=== PATIENT | male | born 1995 | race Caucasian/White ===

== ENCOUNTER 2017-02-22 13:09 | Emergency (ER) | payer MEDICAID ==
[2017-02-22] MEDS ORDERED: Ondansetron 4 MG Tab.DIS PO ONE (14:13)
--- NOTE | 2017-02-22 14:17 | EDM.PDOC ---
ED HPI GENERAL MEDICAL PROBLEM - General Chief Complaint: Abdominal Pain Stated Complaint: RIGHT SIDED ABDOMINAL PAIN Time Seen by Provider: 02/22/17 13:59 Source of Information: Reports: Patient, Old Records, RN Notes Reviewed History Limitations: Reports: No Limitations - History of Present Illness INITIAL COMMENTS - FREE TEXT/NARRATIVE: 21-year-old gentleman presents emergency department day complaint of abdominal pain, he states his had abdominal pain for the last 2 years has waxed and waned over the last 3 week has progressively gotten worse does have nausea with this he does admit that he has bouts of constipation followed by bouts of diarrhea denies any fevers he does take Seroquel however he does not know his primary care provider - Related Data Allergies Allergy/AdvReac Type Severity Reaction Status Date / Time No Known Allergies Allergy Verified 02/22/17 13:35 Home Meds: Home Meds NK [No Known Home Meds] 02/22/17 [History] Past Medical History HEENT History: Reports: Impaired Vision Other Respiratory History: RSV Other Gastrointestinal History: CONSTIPATION Psychiatric History: Reports: ADHD Other Psychiatric History: pedophilia Zoophilia Social & Family History - Tobacco Use Smoking Status *Q: Current Every Day Smoker Years of Tobacco use: 1 Packs/Tins Daily: 0.5 Used Tobacco, but Quit: No Second Hand Smoke Exposure: No - Caffeine Use Caffeine Use: Reports: Coffee, Energy Drinks, Soda, Tea - Recreational Drug Use Recreational Drug Use: Yes Drug Use in Last 12 Months: Yes Recreational Drug Type: Reports: Marijuana/Hashish Recreational Drug Use Frequency: Daily ED ROS GENERAL - Review of Systems Review Of Systems: See Below Constitutional: Reports: No Symptoms HEENT: Reports: No Symptoms Respiratory: Reports: No Symptoms Cardiovascular: Reports: No Symptoms GI/Abdominal: Reports: Abdominal Pain, Constipation, Nausea. Denies: Vomiting : Reports: No Symptoms Musculoskeletal: Reports: No Symptoms Skin: Reports: No Symptoms Neurological: Reports: No Symptoms ED EXAM, GI/ABD - Physical Exam Exam: See Below Text/Narrative:: General: Male, not in any distress, alert and oriented x3 HEENT: head is atraumatic normocephalic, eyes pupils equal round reactive to light, sclera clear no conjunctivitis appreciated. Ears tympanic membranes clear and pacheco landmarks and light reflex are present bilaterally canals are clear. Nose no septal deviation, nares are clear, no blood present. Mouth mucosa is moist and pink no erythema or exudate noted in soft palate, tongue is midline uvula is midline, dentition is intact. Neck: Supple no thyromegaly no tracheal deviation. Nodes: Cervical nodes subclavicular nodes nontender no palpable lymphadenopathy noted. Lungs: clear to auscultation bilaterally with symmetrical respirations, no adventitious noise appreciated. CV: Regular rate and rhythm S1 and S2 appreciated no murmurs rubs or gallops noted. Abdomen: Soft, nontender, no palpable masses or organomegaly appreciated, no distention no guarding bowel sounds are present, . Course - Vital Signs Last Recorded V/S: Last Vital Signs Temp 98.9 F 02/22/17 13:30 Pulse 71 02/22/17 13:30 Resp 15 02/22/17 13:30 BP 114/64 02/22/17 13:30 Pulse Ox 100 02/22/17 13:30 - Orders/Labs/Meds Labs: Laboratory Tests 02/22/17 02/22/17 02/22/17 Range/Units 14:22 14:22 14:22 WBC 7.4 (4.5-11.0) K/uL RBC 4.93 (4.30-5.90) M/uL Hgb 14.6 (12.0-15.0) g/dL Hct 42.8 (40.0-54.0) % MCV 87 (80-98) fL MCH 30 (27-31) pg MCHC 34 (32-36) % Plt Count 227 (150-400) K/uL Neut % (Auto) 50 (36-66) % Lymph % (Auto) 39 (24-44) % [place] % (Auto) 8 H (2-6) % Eos % (Auto) 4 (2-4) % Baso % (Auto) 1 (0-1) % Sodium 139 L (140-148) mmol/L Potassium 3.4 L (3.6-5.2) mmol/L Chloride 103 (100-108) mmol/L Carbon Dioxide 30 (21-32) mmol/L Anion Gap 9.4 (5.0-14.0) mmol/L BUN 13 (7-18) mg/dL Creatinine 1.2 (0.8-1.3) mg/dL Est Cr Clr Drug Dosing 98.19 mL/min Estimated GFR (MDRD) > 60 (>60) Glucose 103 (74-106) mg/dL Lactic Acid 1.0 (0.4-2.0) mmol/L Calcium 9.1 (8.5-10.1) mg/dL Total Bilirubin 0.3 (0.2-1.0) mg/dL AST 25 (15-37) U/L ALT 23 (12-78) U/L Alkaline Phosphatase 58 (46-116) U/L Total Protein 7.4 (6.4-8.2) g/dL Albumin 4.2 (3.4-5.0) g/dL Globulin 3.2 (2.3-3.5) g/dL Albumin/Globulin Ratio 1.3 (1.2-2.2) Lipase 126 (73-393) U/L Urine Color Urine Appearance Urine pH (4.5-8.0) Ur Specific [place] (1.008-1.030) Urine Protein (NEGATIVE) mg/dL Urine Glucose (UA) (NEGATIVE) mg/dL Urine Ketones (NEGATIVE) mg/dL Urine Occult Blood (NEGATIVE) Urine Nitrite (NEGAITVE) Urine Bilirubin (NEGATIVE) Urine Urobilinogen (NORMAL) mg/dL Ur Leukocyte Esterase (NEGATIVE) Urine RBC (0-5) Urine WBC (0-5) Ur Epithelial Cells Amorphous Sediment Urine Bacteria Urine Mucus 02/22/17 Range/Units 14:30 WBC (4.5-11.0) K/uL RBC (4.30-5.90) M/uL Hgb (12.0-15.0) g/dL Hct (40.0-54.0) % MCV (80-98) fL MCH (27-31) pg MCHC (32-36) % Plt Count (150-400) K/uL Neut % (Auto) (36-66) % Lymph % (Auto) (24-44) % [place] % (Auto) (2-6) % Eos % (Auto) (2-4) % Baso % (Auto) (0-1) % Sodium (140-148) mmol/L Potassium (3.6-5.2) mmol/L Chloride (100-108) mmol/L Carbon Dioxide (21-32) mmol/L Anion Gap (5.0-14.0) mmol/L BUN (7-18) mg/dL Creatinine (0.8-1.3) mg/dL Est Cr Clr Drug Dosing mL/min Estimated GFR (MDRD) (>60) Glucose (74-106) mg/dL Lactic Acid (0.4-2.0) mmol/L Calcium (8.5-10.1) mg/dL Total Bilirubin (0.2-1.0) mg/dL AST (15-37) U/L ALT (12-78) U/L Alkaline Phosphatase (46-116) U/L Total Protein (6.4-8.2) g/dL Albumin (3.4-5.0) g/dL Globulin (2.3-3.5) g/dL Albumin/Globulin Ratio (1.2-2.2) Lipase (73-393) U/L Urine Color Yellow Urine Appearance Cloudy Urine pH 8.0 (4.5-8.0) Ur Specific [place] 1.015 (1.008-1.030) Urine Protein Negative (NEGATIVE) mg/dL Urine Glucose (UA) Normal (NEGATIVE) mg/dL Urine Ketones Negative (NEGATIVE) mg/dL Urine Occult Blood Negative (NEGATIVE) Urine Nitrite Negative (NEGAITVE) Urine Bilirubin Negative (NEGATIVE) Urine Urobilinogen Normal (NORMAL) mg/dL Ur Leukocyte Esterase Negative (NEGATIVE) Urine RBC 0-5 (0-5) Urine WBC 0-5 (0-5) Ur Epithelial Cells Few Amorphous Sediment Numerous Urine Bacteria Rare Urine Mucus Few Meds: Medications Discontinued Medications Generic Name Dose Route Start Last Admin Trade Name Freq PRN Reason Stop Dose Admin Ondansetron HCl 4 mg 02/22/17 14:13 02/22/17 14:20 Zofran Odt PO 02/22/17 14:14 4 mg ONETIME ONE Administration Departure - Departure Time of Disposition: 15:19 Disposition: Home, Self-Care 01 Condition: Good Clinical Impression: Abdominal pain Qualifiers: Abdominal location: generalized Qualified Code(s): R10.84 - Generalized abdominal pain - Discharge Information Forms: ED Department Discharge Additional Instructions: Tried the Zofran as needed for nausea and vomiting symptoms, restart the MiraLAX to be used for constipation, try the Anaspaz as needed for generalized abdominal cramping. Please follow-up with your primary care provider in the next 3-5 days for reevaluation - Assessment/Plan Plan: Assessment Acuity = acute Site and laterality = abdominal pain generalized Etiology = unclear etiology Manifestations = constipation and diarrhea Location of injury = Home Lab values = CBC, CMP unremarkable plain film shows no acute process Plan I did review lab work and EKG results with him also discussed the possibility of irritable bowel syndrome recommend he follow-up with his primary care for further evaluation I did write him prescription for Zofran he continues for nausea and vomiting systems as well as Anaspaz that he can use for his abdominal discomfort he does have a prescription of MiraLAX but has not been, recommend follow-up primary care 3-5 days for reevaluation Patient was in agreement with the plan all questions were answered, they were instructed to return to the emergency department or call for worsening symptoms. This note was dictated using [email or web address] voice recognition software please call with any questions.
--- NOTE | 2017-02-22 14:48 | CR ---
Abdomen 1V Flat INDICATION: Generalized pain FINDINGS: Normal bowel gas pattern. No evidence for small bowel obstruction or free air. Scattered s tool and gas within normal caliber colon.
[2017-02-22 15:36] VITALS: BP 111/63
== END 2017-02-22 15:38 | disposition home or self-care (01) ==
LOC: JP.ED 13:09
DX: R10.84 Generalized abdominal pain (principal); F17.210 Nicotine dependence, cigarettes, uncomplicated
CPT/HCPCS: 36415; 74000; 80053; 81001; 83605; 83690; 85025; 99284; A9270

== ENCOUNTER 2017-08-02 00:27 | Emergency (ER) | payer MEDICAID ==
[2017-08-02 00:50] VITALS: BP 129/78
[2017-08-02] MEDS ORDERED: Ketorolac 60 MG/2 ML SDV IM ONE (01:00)
[2017-08-02] MEDS ORDERED: Ondansetron 4 MG Tab.DIS PO ONE (01:01)
--- NOTE | 2017-08-02 01:07 | EDM.PDOC ---
ED HPI GENERAL MEDICAL PROBLEM - General Chief Complaint: Gastrointestinal Problem Stated Complaint: VOMITING Time Seen by Provider: 08/02/17 00:54 Source of Information: Reports: Patient History Limitations: Reports: No Limitations - History of Present Illness Onset: Today Duration: Hour(s): (past 4 to 6 hours) Location: Reports: Generalized Quality: Reports: Ache Severity: Mild Improves with: Reports: None Worsens with: Reports: Eating Associated Symptoms: Reports: Nausea/Vomiting Middle Abdomen Pain Score (Numeric/FACES): 7 - Related Data Allergies Allergy/AdvReac Type Severity Reaction Status Date / Time No Known Allergies Allergy Verified 02/22/17 13:35 Home Meds: Home Meds NK [No Known Home Meds] 02/22/17 [History] Past Medical History HEENT History: Reports: Impaired Vision Other Respiratory History: RSV Other Gastrointestinal History: CONSTIPATION Psychiatric History: Reports: ADHD Other Psychiatric History: pedophilia Zoophilia Social & Family History - Tobacco Use Smoking Status *Q: Current Every Day Smoker Years of Tobacco use: 1 Packs/Tins Daily: 0.5 Used Tobacco, but Quit: No Second Hand Smoke Exposure: No - Caffeine Use Caffeine Use: Reports: Soda - Recreational Drug Use Recreational Drug Use: Yes Drug Use in Last 12 Months: Yes Recreational Drug Type: Reports: Marijuana/Hashish Recreational Drug Use Frequency: Rarely ED ROS GENERAL - Review of Systems Review Of Systems: See Below Constitutional: Reports: Fatigue, Decreased Appetite HEENT: Reports: No Symptoms Respiratory: Reports: No Symptoms Cardiovascular: Reports: No Symptoms Endocrine: Reports: No Symptoms GI/Abdominal: Reports: Diarrhea (watery), Nausea, Vomiting : Reports: No Symptoms Musculoskeletal: Reports: No Symptoms Skin: Reports: No Symptoms Neurological: Reports: No Symptoms Psychiatric: Reports: No Symptoms Hematologic/Lymphatic: Reports: No Symptoms Immunologic: Reports: No Symptoms ED EXAM, GENERAL - Physical Exam Exam: See Below Exam Limited By: No Limitations General Appearance: Alert, WD/WN, No Apparent Distress, Other (pallor) Eye Exam: Bilateral Eye: Normal Inspection Ears: Normal External Exam, Normal Canal, Hearing Grossly Normal, Normal TMs Ear Exam: Bilateral Ear: Auricle Normal, Canal Normal, TM normal Nose: Normal Inspection, Normal Mucosa, No Blood Throat/Mouth: Normal Inspection, Normal Lips, Normal Teeth, Normal Gums, Normal Oropharynx, Normal Voice, No Airway Compromise Head: Atraumatic, Normocephalic Neck: Normal Inspection, Supple, Non-Tender, Full Range of Motion Respiratory/Chest: No Respiratory Distress, Lungs Clear, Normal Breath Sounds, No Accessory Muscle Use, Chest Non-Tender Cardiovascular: Regular Rate, Rhythm, No Murmur GI/Abdominal: Normal Bowel Sounds, Soft, Non-Tender, No Organomegaly, No Distention, No Abnormal Bruit, No Mass (Male) Exam: Deferred Rectal (Males) Exam: Deferred Back Exam: Normal Inspection, Full Range of Motion, NT Extremities: Normal Inspection Neurological: Alert, Oriented, CN II-XII Intact, Normal Cognition, Normal Gait, Normal Reflexes, No Motor/Sensory Deficits Psychiatric: Normal Affect, Normal Mood Skin Exam: Warm, Dry, Intact, Normal Color, No Rash Lymphatic: No Adenopathy Course - Vital Signs Last Recorded V/S: Last Vital Signs Temp 37.3 C 08/02/17 00:40 Pulse 95 08/02/17 00:40 Resp 16 08/02/17 00:40 BP 129/78 08/02/17 00:40 Pulse Ox 99 08/02/17 00:40 - Orders/Labs/Meds Meds: Medications Discontinued Medications Generic Name Dose Route Start Last Admin Trade Name Freq PRN Reason Stop Dose Admin Ketorolac Tromethamine 60 mg 08/02/17 01:00 08/02/17 01:05 Toradol IM 08/02/17 01:01 60 mg ONETIME ONE Administration Ondansetron HCl 4 mg 08/02/17 01:01 08/02/17 01:05 Zofran Odt PO 08/02/17 01:02 4 mg ONETIME ONE Administration - Re-Assessments/Exams Free Text/Narrative Re-Assessment/Exam: 08/02/17 01:04 lab; influenza to rule out infection meds; Zofran 4mg odt for nausea, Toradol 60mg IM for muscle pain/ache will await lab results. 08/02/17 01:24 influenza A and B negative, will discharge to home with work release and phenergan for nausea and vomiting Departure - Departure Time of Disposition: 01:26 Disposition: Home, Self-Care 01 Condition: Good Clinical Impression: Gastroenteritis - Discharge Information Instructions: Viral Gastroenteritis, Adult, [id number], Nausea and Vomiting, Adult, [id number] Referrals: PCP,None [Primary Care Provider] - Forms: ED Department Discharge Care Plan Goals: Nausea and vomiting -influenza A and B negative -clear liquid diet x 12 hours then advance as tolerated -Phenergan 25mg by mouth every 8 hrs as needed for nausea and vomiting -rest -no work for 3 days return to Clinic, Urgent Care or ER if has continued symptoms, develops abdominal pain, fever, chills, rash or not improved. - Problem List & Annotations (1) Gastroenteritis SNOMED Code(s): 60244284 Code(s): K52.9 - NONINFECTIVE GASTROENTERITIS AND COLITIS, UNSPECIFIED Status: Acute Priority: Medium Current Visit: Yes - Problem List Review Problem List Initiated/Reviewed/Updated: Yes - Assessment/Plan Plan: Nausea and vomiting -influenza A and B negative -clear liquid diet x 12 hours then advance as tolerated -Phenergan 25mg by mouth every 8 hrs as needed for nausea and vomiting -rest -no work for 3 days return to Clinic, Urgent Care or ER if has continued symptoms, develops abdominal pain, fever, chills, rash or not improved.
== END 2017-08-02 01:32 | disposition home or self-care (01) ==
LOC: JP.ED 00:27
DX: K52.9 Noninfective gastroenteritis and colitis, unspecified (principal); F17.210 Nicotine dependence, cigarettes, uncomplicated
CPT/HCPCS: 87804; 96372; 99284; A9270; J1885

== ENCOUNTER 2017-08-05 20:56 | Emergency (ER) | payer MEDICAID ==
[2017-08-05 21:23] VITALS: BP 115/74
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
== END 2017-08-05 22:26 | disposition home or self-care (01) ==
LOC: JP.ED 20:56
DX: F41.8 Other specified anxiety disorders (principal); F17.210 Nicotine dependence, cigarettes, uncomplicated
CPT/HCPCS: 87081; 87430; 99285

== ENCOUNTER 2018-01-01 01:15 | Emergency (ER) | payer MEDICAID ==
[2018-01-01] MEDS ORDERED: Acetaminophen 325 MG Tab PO ONE (01:53)
--- NOTE | 2018-01-01 01:53 | EDM.PDOC ---
ED HPI GENERAL MEDICAL PROBLEM - General Chief Complaint: Abdominal Pain Stated Complaint: ABD PAIN Time Seen by Provider: 01/01/18 01:53 Source of Information: Reports: Patient History Limitations: Reports: No Limitations - History of Present Illness INITIAL COMMENTS - FREE TEXT/NARRATIVE: pt developed some gas and discomfort in the abdoman yesterday am, He had 2 loose stools. He has not had any further diarrhea since that time. He did have a cough and wheezing and he was seen at the clinic wed. He has been sweaty and felt warm all day. He has not had further diarrhea. Onset: Other (yesterday. He had a cough earluier in the week. ) Duration: Hour(s): Associated Symptoms: Reports: Cough, Fever/Chills, Loss of Appetite Mid Abdomen Pain Score (Numeric/FACES): 8 - Related Data Allergies Allergy/AdvReac Type Severity Reaction Status Date / Time No Known Allergies Allergy Verified 01/01/18 01:44 Home Meds: Home Meds Albuterol [Ventolin HFA] 1 puff INH Q4HR PRN 01/01/18 [History] predniSONE 20 mg PO DAILY 01/01/18 [History] Past Medical History HEENT History: Reports: Impaired Vision Other Respiratory History: RSV Other Gastrointestinal History: CONSTIPATION Psychiatric History: Reports: ADHD Other Psychiatric History: pedophilia Zoophilia Social & Family History - Caffeine Use Caffeine Use: Reports: Soda - Living Situation & Occupation Living situation: Reports: Single Occupation: Employed (lives 30 mins away from [facility]) ED ROS GENERAL - Review of Systems Review Of Systems: See Below Constitutional: Reports: Fever, Chills HEENT: Reports: No Symptoms Respiratory: Reports: Cough, Sputum Cardiovascular: Reports: No Symptoms Endocrine: Reports: No Symptoms GI/Abdominal: Reports: Other (pain over his bladder area. ) : Reports: No Symptoms Musculoskeletal: Reports: No Symptoms Skin: Reports: No Symptoms ED EXAM, GI/ABD - Physical Exam Exam: See Below Text/Narrative:: pt was chilling and appeared dehydrated. He did have a temp of 103. He has no history of tick bites but he has been in the [place]. Exam Limited By: No Limitations General Appearance: Moderate Distress Ears: Normal TMs Nose: Normal Inspection Throat/Mouth: Normal Inspection Head: Atraumatic Neck: Normal Inspection Respiratory/Chest: No Respiratory Distress, Other (pt has no wheezinf or resp distress. ) Cardiovascular: Regular Rate, Rhythm, Tachycardia GI/Abdominal Exam: Soft, Tender, Other (He has mild suprapupic tenderness. ) (Male) Exam: Deferred Rectal (Males) Exam: Deferred Back Exam: Normal Inspection Extremities: Normal Inspection Neurological: Alert, Oriented, Normal Cognition Psychiatric: Anxious Course - Vital Signs Last Recorded V/S: Last Vital Signs Temp 37.6 C 01/01/18 03:30 Pulse 88 01/01/18 03:30 Resp 14 01/01/18 03:30 BP 110/85 01/01/18 03:30 Pulse Ox 97 01/01/18 03:30 - Orders/Labs/Meds Labs: Laboratory Tests 01/01/18 01/01/18 01/01/18 Range/Units 02:04 02:04 02:04 WBC 7.8 (4.5-11.0) K/uL RBC 5.01 (4.30-5.90) M/uL Hgb 14.9 (12.0-15.0) g/dL Hct 42.9 (40.0-54.0) % MCV 86 (80-98) fL MCH 30 (27-31) pg MCHC 35 (32-36) % Plt Count 227 (150-400) K/uL Neut % (Auto) 84 H (36-66) % Lymph % (Auto) 12 L (24-44) % [place] % (Auto) 3 (2-6) % Eos % (Auto) 0 L (2-4) % Baso % (Auto) 0 (0-1) % Sodium 139 L (140-148) mmol/L Potassium 3.2 L (3.6-5.2) mmol/L Chloride 102 (100-108) mmol/L Carbon Dioxide 25 (21-32) mmol/L Anion Gap 15.2 H (5.0-14.0) mmol/L BUN 14 (7-18) mg/dL Creatinine 1.3 (0.8-1.3) mg/dL Est Cr Clr Drug Dosing 95.01 mL/min Estimated GFR (MDRD) > 60 (>60) Glucose 90 (74-106) mg/dL Lactic Acid 1.3 (0.4-2.0) mmol/L Calcium 8.3 L (8.5-10.1) mg/dL Total Bilirubin 0.4 (0.2-1.0) mg/dL AST 25 (15-37) U/L ALT 30 (12-78) U/L Alkaline Phosphatase 42 L (46-116) U/L C-Reactive Protein (0.0-0.3) mg/dL Total Protein 7.0 (6.4-8.2) g/dL Albumin 3.8 (3.4-5.0) g/dL Globulin 3.2 (2.3-3.5) g/dL Albumin/Globulin Ratio 1.2 (1.2-2.2) Urine Color Urine Appearance Urine pH (4.5-8.0) Ur Specific [place] (1.008-1.030) Urine Protein (NEGATIVE) mg/dL Urine Glucose (UA) (NEGATIVE) mg/dL Urine Ketones (NEGATIVE) mg/dL Urine Occult Blood (NEGATIVE) Urine Nitrite (NEGAITVE) Urine Bilirubin (NEGATIVE) Urine Urobilinogen (NORMAL) mg/dL Ur Leukocyte Esterase (NEGATIVE) Urine RBC (0-5) Urine WBC (0-5) Ur Epithelial Cells Amorphous Sediment Urine Bacteria Urine Mucus Babesia microti IgG Ab (Neg:<1:10) Babesia microti IgM Ab (Neg:<1:10) E. chaffeensis IgG Ab (Neg:<1:64) E. chaffeensis IgM Ab (Neg:<1:20) 01/01/18 01/01/18 01/01/18 Range/Units 02:05 02:30 02:30 WBC (4.5-11.0) K/uL RBC (4.30-5.90) M/uL Hgb (12.0-15.0) g/dL Hct (40.0-54.0) % MCV (80-98) fL MCH (27-31) pg MCHC (32-36) % Plt Count (150-400) K/uL Neut % (Auto) (36-66) % Lymph % (Auto) (24-44) % [place] % (Auto) (2-6) % Eos % (Auto) (2-4) % Baso % (Auto) (0-1) % Sodium (140-148) mmol/L Potassium (3.6-5.2) mmol/L Chloride (100-108) mmol/L Carbon Dioxide (21-32) mmol/L Anion Gap (5.0-14.0) mmol/L BUN (7-18) mg/dL Creatinine (0.8-1.3) mg/dL Est Cr Clr Drug Dosing mL/min Estimated GFR (MDRD) (>60) Glucose (74-106) mg/dL Lactic Acid (0.4-2.0) mmol/L Calcium (8.5-10.1) mg/dL Total Bilirubin (0.2-1.0) mg/dL AST (15-37) U/L ALT (12-78) U/L Alkaline Phosphatase (46-116) U/L C-Reactive Protein 1.68 H (0.0-0.3) mg/dL Total Protein (6.4-8.2) g/dL Albumin (3.4-5.0) g/dL Globulin (2.3-3.5) g/dL Albumin/Globulin Ratio (1.2-2.2) Urine Color Urine Appearance Urine pH (4.5-8.0) Ur Specific [place] (1.008-1.030) Urine Protein (NEGATIVE) mg/dL Urine Glucose (UA) (NEGATIVE) mg/dL Urine Ketones (NEGATIVE) mg/dL Urine Occult Blood (NEGATIVE) Urine Nitrite (NEGAITVE) Urine Bilirubin (NEGATIVE) Urine Urobilinogen (NORMAL) mg/dL Ur Leukocyte Esterase (NEGATIVE) Urine RBC (0-5) Urine WBC (0-5) Ur Epithelial Cells Amorphous Sediment Urine Bacteria Urine Mucus Babesia microti IgG Ab <1:10 (Neg:<1:10) Babesia microti IgM Ab <1:10 (Neg:<1:10) E. chaffeensis IgG Ab Negative (Neg:<1:64) E. chaffeensis IgM Ab Negative (Neg:<1:20) 01/01/18 Range/Units 06:47 WBC (4.5-11.0) K/uL RBC (4.30-5.90) M/uL Hgb (12.0-15.0) g/dL Hct (40.0-54.0) % MCV (80-98) fL MCH (27-31) pg MCHC (32-36) % Plt Count (150-400) K/uL Neut % (Auto) (36-66) % Lymph % (Auto) (24-44) % [place] % (Auto) (2-6) % Eos % (Auto) (2-4) % Baso % (Auto) (0-1) % Sodium (140-148) mmol/L Potassium (3.6-5.2) mmol/L Chloride (100-108) mmol/L Carbon Dioxide (21-32) mmol/L Anion Gap (5.0-14.0) mmol/L BUN (7-18) mg/dL Creatinine (0.8-1.3) mg/dL Est Cr Clr Drug Dosing mL/min Estimated GFR (MDRD) (>60) Glucose (74-106) mg/dL Lactic Acid (0.4-2.0) mmol/L Calcium (8.5-10.1) mg/dL Total Bilirubin (0.2-1.0) mg/dL AST (15-37) U/L ALT (12-78) U/L Alkaline Phosphatase (46-116) U/L C-Reactive Protein (0.0-0.3) mg/dL Total Protein (6.4-8.2) g/dL Albumin (3.4-5.0) g/dL Globulin (2.3-3.5) g/dL Albumin/Globulin Ratio (1.2-2.2) Urine Color Yellow Urine Appearance Clear Urine pH 5.0 (4.5-8.0) Ur Specific [place] 1.010 (1.008-1.030) Urine Protein Negative (NEGATIVE) mg/dL Urine Glucose (UA) Normal (NEGATIVE) mg/dL Urine Ketones 15 H (NEGATIVE) mg/dL Urine Occult Blood Negative (NEGATIVE) Urine Nitrite Negative (NEGAITVE) Urine Bilirubin Negative (NEGATIVE) Urine Urobilinogen Normal (NORMAL) mg/dL Ur Leukocyte Esterase Negative (NEGATIVE) Urine RBC Not seen (0-5) Urine WBC 0-5 (0-5) Ur Epithelial Cells Not seen Amorphous Sediment Not seen Urine Bacteria Not seen Urine Mucus Few Babesia microti IgG Ab (Neg:<1:10) Babesia microti IgM Ab (Neg:<1:10) E. chaffeensis IgG Ab (Neg:<1:64) E. chaffeensis IgM Ab (Neg:<1:20) Meds: Medications Discontinued Medications Generic Name Dose Route Start Last Admin Trade Name Jemal PRN Reason Stop Dose Admin Acetaminophen 650 mg 01/01/18 01:53 01/01/18 02:09 Tylenol PO 01/01/18 01:54 650 mg NOW ONE Administration Sodium Chloride 1,000 mls @ 999 mls/hr 01/01/18 02:00 01/01/18 02:10 Normal Saline IV 999 mls/hr ASDIRECTED KAUSHIK Administration Sodium Chloride 1,000 mls @ 999 mls/hr 01/01/18 02:45 01/01/18 03:12 Normal Saline IV 999 mls/hr ASDIRECTED KAUSHIK Administration Doxycycline Hyclate 100 mg/ 100 mls @ 100 mls/hr 01/01/18 03:05 01/01/18 03: 18 Sodium Chloride IV 01/01/18 04:04 100 mls/hr ONETIME ONE Administration Sodium Chloride 1,000 mls @ 999 mls/hr 01/01/18 03:45 01/01/18 04:13 Normal Saline IV 999 mls/hr ASDIRECTED KAUSHIK Administration Ibuprofen 600 mg 01/01/18 03:26 01/01/18 04:12 Motrin PO 01/01/18 03:27 600 mg ONETIME ONE Administration - Re-Assessments/Exams Free Text/Narrative Re-Assessment/Exam: 01/04/18 07:26 pt waS HYDRATED WITH 2 LITERS OF FLUID. hIS ABDOMANAL PAIN WAS GONE. hE HAD A NEG INFLU AND A CLEAR CHEST XRAY. hE DID FEEL BETTTER. hIS TICK STUDIES ARE PENDING. Departure - Departure Time of Disposition: 07:20 Disposition: Home, Self-Care 01 Condition: Fair Clinical Impression: At high risk for tick borne illness, Dehydration - Discharge Information Instructions: Tick Bite Information, Adult, [id number], Dehydration, Adult, [id number] Referrals: PCP,None [Primary Care Provider] - Forms: ED Department Discharge Care Plan Goals: push fluids, doxycyline 100mg bid, rtc if not improving, will get back to pt regarding tick born illness studies
[2018-01-01] MEDS ORDERED: Sodium Chloride 0.9% 1,000 ML IV SCH ×3 (02:00→03:45)
[2018-01-01] MEDS ORDERED: Doxycycline 100 MG in Sodium Chloride 0.9% 100 ML IV ONE (03:05)
[2018-01-01] MEDS ORDERED: Ibuprofen 600 MG Tab PO ONE (03:26)
[2018-01-01 04:08] VITALS: BP 110/85
--- NOTE | 2018-01-01 11:18 | CR ---
Chest 2V INDICATION: fever FINDINGS: Negative chest.
[2018-01-03 14:13] LABS: E. CHAFFEENSIS (HME) IGG TITER Negative (Neg:<1:64); E. CHAFFEENSIS (HME) IGM TITER Negative (Neg:<1:20)
[2018-01-03 17:10] LABS: BABESIA MICROTI IGG <1:10 (Neg:<1:10); BABESIA MICROTI IGM <1:10 (Neg:<1:10)
== END 2018-01-01 07:43 | disposition home or self-care (01) ==
LOC: JP.ED 01:15
DX: E86.0 Dehydration (principal); Z79.899 Other long term (current) drug therapy; F95.9 Tic disorder, unspecified
CPT/HCPCS: 36415; 71046; 80053; 81001; 83605; 85025; 86140; 86666; 86753; 87040; 87493; 87804; 96361; 96365; 99284; A9270; J7030; J7040

== ENCOUNTER 2018-03-04 07:51 | Emergency (ER) | payer MEDICAID ==
[2018-03-04 08:06] VITALS: BP 110/61
--- NOTE | 2018-03-04 08:28 | EDM.PDOC ---
ED HPI GENERAL MEDICAL PROBLEM - General Chief Complaint: General Stated Complaint: TOP LIP SWOLLEN Time Seen by Provider: 03/04/18 08:17 Source of Information: Reports: Patient, RN Notes Reviewed History Limitations: Reports: No Limitations - History of Present Illness INITIAL COMMENTS - FREE TEXT/NARRATIVE: 22-year-old gentleman presents to the emergency department today with complaint of facial swelling, he admits to having a pimple on his upper lip he did pick at this now awoke this morning with swelling in the upper lip mild tenderness no fevers no redness no warmth - Related Data Allergies Allergy/AdvReac Type Severity Reaction Status Date / Time No Known Allergies Allergy Verified 03/04/18 08:10 Home Meds: Home Meds Albuterol [Ventolin HFA] 1 puff INH Q4HR PRN 01/01/18 [History] Past Medical History HEENT History: Reports: Impaired Vision Respiratory History: Reports: Bronchitis, Recurrent Other Respiratory History: RSV Other Gastrointestinal History: CONSTIPATION Psychiatric History: Reports: ADHD Other Psychiatric History: pedophilia Zoophilia - Infectious Disease History Infectious Disease History: Reports: RSV Social & Family History - Tobacco Use Smoking Status *Q: Current Every Day Smoker Years of Tobacco use: 3 Packs/Tins Daily: 0.5 - Caffeine Use Caffeine Use: Reports: Coffee, Soda - Alcohol Use Days Per Week of Alcohol Use: 2 Number of Drinks Per Day: 2 Total Drinks Per Week: 4 - Recreational Drug Use Recreational Drug Use: Yes Recreational Drug Type: Reports: Marijuana/Hashish Recreational Drug Use Frequency: Socially - Living Situation & Occupation Living situation: Reports: Single Occupation: Employed (lives 30 [place] away from [facility]) ED ROS GENERAL - Review of Systems Review Of Systems: See Below Constitutional: Reports: No Symptoms Respiratory: Reports: No Symptoms Cardiovascular: Reports: No Symptoms GI/Abdominal: Reports: Nausea Skin: Reports: Rash, Lesions. Denies: Pallor ED EXAM, GENERAL - Physical Exam Exam: See Below Free Text/Narrative:: Mouth mucosa is moist and pink no erythema or exudate noted in soft palate tongue is midline uvula is midline and do appreciate some edema on the upper lip I can't detect any specific break in the skin there is mild erythema appreciated over the upper lip as well there is no lesion noted on the anterior aspect of the mucosal Exam Limited By: No Limitations General Appearance: Alert, WD/WN, No Apparent Distress Nose: Normal Inspection, Normal Mucosa, No Blood Head: Atraumatic, Normocephalic Neck: Normal Inspection, Supple, Non-Tender, Full Range of Motion Respiratory/Chest: No Respiratory Distress Course - Vital Signs Last Recorded V/S: Last Vital Signs Temp 96.1 F 03/04/18 08:09 Pulse 62 03/04/18 08:09 Resp 16 03/04/18 08:09 BP 110/61 03/04/18 08:09 Pulse Ox 100 03/04/18 08:09 Departure - Departure Time of Disposition: 08:29 Disposition: Home, Self-Care 01 Condition: Good Clinical Impression: Cellulitis and abscess of face - Discharge Information Referrals: PCP,None [Primary Care Provider] - Additional Instructions: Take full course of antibiotics, Please followup with your primary care provider in 3-5 days if not better, please call return to the emergency department with worsening of symptoms. - Assessment/Plan Plan: Assessment Acuity = acute Site and laterality = local cellulitis Etiology = probable bacterial cause Manifestations = local edema Location of injury = Home Lab values = none Plan Empirically try ice compress, Keflex 500 mg by mouth twice a day 7 days follow- up primary care 3-5 days if no improvement This note was dictated using [employer] voice recognition software please call with any questions on syntax or grammar.
== END 2018-03-04 08:36 | disposition home or self-care (01) ==
LOC: JP.ED 07:51
DX: K13.0 Diseases of lips (principal); F17.210 Nicotine dependence, cigarettes, uncomplicated
CPT/HCPCS: 99283

== ENCOUNTER 2020-05-06 12:35 | Day surgery (SDC) | payer MEDICARE, MEDICAID ==
[2020-05-06] MEDS: Sodium Chloride 0.9% 10 ML Syringe FLUSH PRN ×2 (13:03→13:40)
[2020-05-06] MEDS ORDERED: HYDROmorphone 0.5 MG/0.5 ML Syringe IVPUSH ONE ×2 (13:06→14:21)
[2020-05-06] MEDS ORDERED: Lactated Ringers 1,000 ML IV ONE (13:06)
[2020-05-06] MEDS ORDERED: Ondansetron 4 MG/2 ML SDV IVPUSH ONE (13:07)
--- NOTE | 2020-05-06 13:16 | EDM.PDOC ---
ED HPI GENERAL MEDICAL PROBLEM - General Chief Complaint: Abdominal Pain Stated Complaint: RT LOWER ABDOMINAL PAIN Time Seen by Provider: 05/06/20 13:00 Source of Information: Reports: Patient, RN History Limitations: Reports: No Limitations - History of Present Illness INITIAL COMMENTS - FREE TEXT/NARRATIVE: 24 yo male presents with RLQ pain that began yesterday as periumbilical pain. Has some nausea. Bowels not working last couple of days. Has mild urethral burning with urination. No fever. No past surgeries. Appetite is gone. Onset: Gradual Onset Date: 05/05/20 Duration: Day(s): (1), Getting Worse Location: Reports: Abdomen Quality: Reports: Ache Severity: Moderate Improves with: Reports: Rest Worsens with: Reports: Movement Context: Reports: Other (See HPI) Associated Symptoms: Reports: Loss of Appetite, Nausea/Vomiting (no vomiting). Denies: Fever/Chills Treatments BROADCAST METEOROLOGIST: Reports: Other (see below) (none) Right Lower Abdomen Pain Score (Numeric/FACES): 8 - Related Data Allergies Allergy/AdvReac Type Severity Reaction Status Date / Time No Known Allergies Allergy Verified 05/06/20 12:50 Home Meds: Home Meds Albuterol [Ventolin HFA] 1 puff INH Q4HR PRN 01/01/18 [History] Past Medical History HEENT History: Reports: Impaired Vision Other Cardiovascular History: ? murmur Respiratory History: Reports: Bronchitis, Recurrent Other Respiratory History: RSV Gastrointestinal History: Reports: Irritable Bowel Syndrome Other Gastrointestinal History: CONSTIPATION Genitourinary History: Reports: None Musculoskeletal History: Reports: None Neurological History: Reports: None Psychiatric History: Reports: ADHD, Suicidal Ideation Other Psychiatric History: pedophilia Zoophilia Endocrine/Metabolic History: Reports: None Hematologic History: Reports: None Immunologic History: Reports: None Oncologic (Cancer) History: Reports: None Dermatologic History: Reports: None - Infectious Disease History Infectious Disease History: Reports: None Social & Family History - Tobacco Use Smoking Status *Q: Current Every Day Smoker Years of Tobacco use: 2 Packs/Tins Daily: 1 - Caffeine Use Caffeine Use: Reports: Coffee, Energy Drinks, Soda, Tea - Recreational Drug Use Recreational Drug Use: No - Living Situation & Occupation Living situation: Reports: Single Occupation: Employed (lives [place] away from [facility]) ED ROS GENERAL - Review of Systems Review Of Systems: See Below Constitutional: Reports: No Symptoms HEENT: Reports: No Symptoms Respiratory: Reports: No Symptoms Cardiovascular: Reports: No Symptoms GI/Abdominal: Reports: Abdominal Pain, Constipation, Flatus, Nausea. Denies: Black Stool, Bloody Stool, Diarrhea, Distension, Hematemesis, Hematochezia, Melena, Vomiting : Reports: Dysuria (mild) Musculoskeletal: Reports: No Symptoms Skin: Reports: No Symptoms Neurological: Reports: No Symptoms ED EXAM, GI/ABD - Physical Exam Exam: See Below Exam Limited By: No Limitations General Appearance: Alert, WD/WN, No Apparent Distress Eyes: Bilateral: Normal Appearance Ears: Normal External Exam, Normal Canal, Hearing Grossly Normal Nose: Normal Inspection, No Blood Throat/Mouth: Normal Inspection, Normal Lips, Normal Oropharynx, Normal Voice, No Airway Compromise Head: Atraumatic, Normocephalic Neck: Normal Inspection Respiratory/Chest: No Respiratory Distress, Lungs Clear, Normal Breath Sounds, No Accessory Muscle Use Cardiovascular: Regular Rate, Rhythm, No Edema GI/Abdominal Exam: Normal Bowel Sounds, Soft, No Distention, Guarding (mild), Rebound (mild), Tender (RLQ). No: Non-Tender, Distended, Rigid (Male) Exam: No Hernia Back Exam: Normal Inspection. No: CVA Tenderness (R), CVA Tenderness (L) Extremities: Normal Inspection, Normal Range of Motion, Non-Tender, No Pedal Edema Neurological: Alert, Oriented, CN II-XII Intact, Normal Cognition, No Motor/Sensory Deficits Psychiatric: Normal Affect, Normal Mood Skin Exam: Warm, Dry, Intact, Normal Color, No Rash Course - Vital Signs Text/Narrative:: Dr. Odell called @ 1347h Last Recorded V/S: Last Vital Signs Temp 36.5 C 05/06/20 17:45 Pulse 77 05/06/20 17:00 Resp 16 05/06/20 17:45 BP 111/63 05/06/20 17:45 Pulse Ox 98 05/06/20 17:45 - Orders/Labs/Meds Orders: Active Orders 24 hr Category Date Time Status Lactated Ringers [Ringers, Lactated] 1,000 ml Med 05/06/20 15:00 Active IV ASDIRECTED Piperacillin/Tazobactam/Dext [Zosyn in Dextrose Iso- Med 05/06/20 22:00 Active Osmotic] 4.5 gm Premix Bag 1 bag IV Q8HR Ropivacaine [Naropin 0.5%] 38 ml Med 05/06/20 15:00 Active dexAMETHasone [Dexamethasone] 8 mg EPINEPHrine [Adrenalin] 0.4 mg Sodium Chloride 0.9% [Normal Saline] 39.6 ml NERVRT ASDIRECTED Sodium Chloride 0.9% [Saline Flush] Med 05/06/20 12:56 Active 10 ml FLUSH ASDIRECTED PRN Saline Lock Insert [OM.PC] Routine Oth 05/06/20 12:56 Ordered Medication Orders Hydrocodone Bitart/Acetaminophen (Alta 325-5 Mg) 1 - 2 tab PO Q4H PRN PRN Reason: Pain (moderate 4-6) Last Admin: 05/06/20 18:22 Dose: 1 tab Documented by: NICOL Benzocaine/Menthol (Cepacol Sore Throat) 1 lozenge MUCMEM Q4H PRN PRN Reason: Sore Throat Ropivacaine 38 ml/Dexamethasone 8 mg/Epinephrine HCl 0.4 mg/ Sodium Chloride 39.6 ml 0 ml NERVRT ASDIRECTED [facility] Last Admin: 05/06/20 15:38 Dose: 80 syringe Documented by: BALDEMAR Docusate Sodium (Colace) 100 mg PO BID PRN PRN Reason: Constipation Last Admin: 05/06/20 18:22 Dose: 100 mg Documented by: NICOL Fentanyl (Sublimaze) 10 - 30 mcg IVPUSH Q1H PRN PRN Reason: Pain (severe 7-10) Hydroxyzine HCl (Vistaril) 100 mg IM Q4H PRN PRN Reason: Breakthrough Pain Last Admin: 05/06/20 15:51 Dose: 100 mg Documented by: BALDEMAR Lactated Ringer's (Ringers, Lactated) 1,000 mls @ 150 mls/hr IV ASDIRECTED [facility] Last Admin: 05/06/20 15:02 Dose: 150 mls/hr Documented by: PREILOR Piperacillin/Tazobactam/ (Dextrose 4.5 gm/ Premix) 100 mls @ 200 mls/hr IV Q8HR [facility] Nicotine (Habitrol) 21 mg TRDERM DAILY [facility] Last Admin: 05/06/20 18:22 Dose: 21 mg Documented by: NICOL Promethazine HCl (Phenergan) 25 mg IM Q6H PRN PRN Reason: Nausea Sodium Chloride (Saline Flush) 10 ml FLUSH ASDIRECTED PRN PRN Reason: Keep Vein Open Last Admin: 05/06/20 13:40 Dose: 10 ml Documented by: Admin: 05/06/20 13:03 Dose: 10 ml Documented by: NAVEEN Zolpidem Tartrate (Ambien) 5 mg PO BEDTIME PRN PRN Reason: Sleep Labs: Laboratory Tests 05/06/20 05/06/20 05/06/20 Range/Units 13:06 13:06 14:00 WBC 15.4 H (4.5-11.0) K/uL RBC 5.88 (4.30-5.90) M/uL Hgb 17.1 H D (12.0-15.0) g/dL Hct 50.7 (40.0-54.0) % MCV 86 (80-98) fL MCH 29 (27-31) pg MCHC 34 (32-36) % Plt Count 265 (150-400) K/uL Sodium 139 L (140-148) mmol/L Potassium 3.8 (3.6-5.2) mmol/L Chloride 103 (100-108) mmol/L Carbon Dioxide 23 (21-32) mmol/L Anion Gap 16.8 H (5.0-14.0) mmol/L BUN 13 (7-18) mg/dL Creatinine 1.2 (0.8-1.3) mg/dL Est Cr Clr Drug Dosing 95.74 mL/min Estimated GFR (MDRD) > 60 (>60) Glucose 107 H (74-106) mg/dL Calcium 9.4 (8.5-10.1) mg/dL SARS-CoV-2 RNA (LEANDRA) Negative (NEGATIVE) Meds: Medications Generic Name Dose Route Start Last Admin Trade Name Freq PRN Reason Stop Dose Admin Hydrocodone Bitart/Acetaminophen 1 - 2 tab 05/06/20 15:12 05/06/20 18:22 Alta 325-5 Mg PO 1 tab Q4H PRN Administration Pain (moderate 4-6) Benzocaine/Menthol 1 lozenge 05/06/20 15:12 Cepacol Sore Throat MUCMEM Q4H PRN Sore Throat Ropivacaine 38 ml/ 0 ml 05/06/20 15:00 05/06/20 15:38 Dexamethasone 8 mg/ NERVRT 80 syringe Epinephrine HCl 0.4 mg/ Sodium ASDIRECTED KAUSHIK Administration Chloride 39.6 ml Docusate Sodium 100 mg 05/06/20 15:12 05/06/20 18:22 Colace PO 100 mg BID PRN Administration Constipation Fentanyl 10 - 30 mcg 05/06/20 15:14 Sublimaze IVPUSH Q1H PRN Pain (severe 7-10) Hydroxyzine HCl 100 mg 05/06/20 15:12 05/06/20 15:51 Vistaril IM 100 mg Q4H PRN Administration Breakthrough Pain Lactated Ringer's 1,000 mls @ 150 mls/hr 05/06/20 15:00 05/06/20 15:02 Ringers, Lactated IV 150 mls/hr ASDIRECTED KAUSHIK Administration Piperacillin/Tazobactam/ 100 mls @ 200 mls/hr 05/06/20 22:00 Dextrose 4.5 gm/ Premix IV Q8HR KAUSHIK Nicotine 21 mg 05/06/20 17:45 05/06/20 18:22 Habitrol TRDERM 21 mg DAILY KAUSHIK Administration Promethazine HCl 25 mg 05/06/20 15:14 Phenergan IM Q6H PRN Nausea Sodium Chloride 10 ml 05/06/20 12:56 05/06/20 13:40 Saline Flush FLUSH 10 ml ASDIRECTED PRN Administration Keep Vein Open Zolpidem Tartrate 5 mg 05/06/20 15:12 Ambien PO BEDTIME PRN Sleep Discontinued Medications Generic Name Dose Route Start Last Admin Trade Name Mikhailq PRN Reason Stop Dose Admin Bupivacaine HCl Confirm 05/06/20 14:14 Marcaine 0.5% Administered 05/06/20 14:15 Dose 50 ml .ROUTE .STK-MED ONE Bupivacaine HCl/Epinephrine Bitart Confirm 05/06/20 14:17 05/06/20 15:36 Marcaine 0.5%/Epinephrine 1:200,000 Administered 05/06/20 14:18 20 ml Dose Administration 50 ml .ROUTE .STK-MED ONE Dexamethasone Confirm 05/06/20 14:13 Dexamethasone Administered 05/06/20 14:14 Dose 4 mg .ROUTE .STK-MED ONE Fentanyl Confirm 05/06/20 14:13 Sublimaze Administered 05/06/20 14:14 Dose 250 mcg .ROUTE .STK-MED ONE Glycopyrrolate Confirm 05/06/20 14:13 Robinul Administered 05/06/20 14:14 Dose 1 mg .ROUTE .STK-MED ONE Hydromorphone HCl 0.5 mg 05/06/20 13:06 05/06/20 13:19 Dilaudid IVPUSH 05/06/20 13:07 0.5 mg ONETIME ONE Administration Hydromorphone HCl 0.5 mg 05/06/20 14:21 05/06/20 14:35 Dilaudid IVPUSH 05/06/20 14:22 0.5 mg ONETIME ONE Administration Hydroxyzine HCl 50 mg 05/06/20 15:42 05/06/20 17:29 Vistaril IM 05/06/20 15:43 Not Given ONETIME ONE Lactated Ringer's 1,000 mls @ 1,000 mls/hr 05/06/20 13:06 05/06/20 13:16 Ringers, Lactated IV 05/06/20 14:05 1,000 mls/hr BOLUS ONE Administration Sodium Chloride 75 mls @ 3 mls/sec 05/06/20 13:29 05/06/20 13:44 Normal Saline IV 05/06/20 13:30 3 mls/sec ONETIME ONE Administration Piperacillin Sod/Tazobactam 100 mls @ 100 mls/hr 05/06/20 14:45 05/06/20 15:02 Sod 4.5 gm/ Sodium Chloride IV 05/06/20 15:30 100 mls/hr Q8H KAUSHIK Administration Iopamidol 114 ml 05/06/20 13:30 05/06/20 13:44 Isovue-300 (61%) IV 114 ml . DIRECTED KAUSHIK Administration Ketorolac Tromethamine Confirm 05/06/20 15:41 Toradol Administered 05/06/20 15:42 Dose 60 mg .ROUTE .STK-MED ONE Lidocaine/Epinephrine Confirm 05/06/20 14:14 Xylocaine 1% With Epinephrine 1:100,000 Administered 05/06/20 14:15 Dose 50 ml .ROUTE .STK-MED ONE Midazolam HCl Confirm 05/06/20 14:13 Versed 1 Mg/Ml Administered 05/06/20 14:14 Dose 2 mg .ROUTE .STK-MED ONE Neostigmine Methylsulfate Confirm 05/06/20 14:13 Neostigmine Administered 05/06/20 14:14 Dose 5 mg .ROUTE .STK-MED ONE Ondansetron HCl 4 mg 05/06/20 13:07 05/06/20 13:18 Zofran IVPUSH 05/06/20 13:08 4 mg ONETIME ONE Administration Ondansetron HCl Confirm 05/06/20 14:13 Zofran Administered 05/06/20 14:14 Dose 4 mg .ROUTE .STK-MED ONE Propofol Confirm 05/06/20 14:13 Diprivan 20 Ml Administered 05/06/20 14:14 Dose 200 mg .ROUTE .STK-MED ONE Rocuronium [place] Confirm 05/06/20 14:13 Zemuron Administered 05/06/20 14:14 Dose 50 mg .ROUTE .STK-MED ONE Sodium Chloride 10 ml 05/06/20 13:29 Saline Flush FLUSH ONETIME PRN PER RADIOLOGY PROTOCOL Succinylcholine Chloride Confirm 05/06/20 14:13 Quelicin Administered 05/06/20 14:14 Dose 200 mg .ROUTE .STK-MED ONE - Radiology Interpretation Free Text/Narrative:: CT abd/pelvis with IV contrast- CT Results Date: 05/06/20 Departure - Departure Time of Disposition: 17:45 Disposition: Admitted As Inpatient 67 Condition: Fair Clinical Impression: Acute appendicitis Qualifiers: Acute appendicitis type: with localized peritonitis Appendicitis gangrene presence: without gangrene Appendicitis perforation presence: without perforation Appendicitis abscess presence: without abscess Qualified Code(s): K35.30 - Acute appendicitis with localized peritonitis, without perforation or gangrene - Discharge Information *PRESCRIPTION DRUG MONITORING PROGRAM REVIEWED*: Not Applicable *COPY OF PRESCRIPTION DRUG MONITORING REPORT IN PATIENT SADIE: Not Applicable Sepsis Event Note (ED) - Evaluation Sepsis Screening Result: No Definite Risk - Focused Exam Vital Signs: Vital Signs Temp Pulse Resp BP Pulse Ox 05/06/20 15:06 82 16 116/69 99 05/06/20 14:30 97 15 124/67 97 05/06/20 12:51 37.3 C 112 H 16 112/77 97 - My Orders Last 24 Hours: My Active Orders 05/06/20 12:56 Sodium Chloride 0.9% [Saline Flush] 10 ml FLUSH ASDIRECTED PRN Saline Lock Insert [OM.PC] Routine 05/06/20 15:00 Lactated Ringers [Ringers, Lactated] 1,000 ml IV ASDIRECTED 05/06/20 22:00 Piperacillin/Tazobactam/Dext [Zosyn in Dextrose Iso-Osmotic] 4.5 gm Premix Bag 1 bag IV Q8HR - Assessment/Plan Last 24 Hours: My Active Orders 05/06/20 12:56 Sodium Chloride 0.9% [Saline Flush] 10 ml FLUSH ASDIRECTED PRN Saline Lock Insert [OM.PC] Routine 05/06/20 15:00 Lactated Ringers [Ringers, Lactated] 1,000 ml IV ASDIRECTED 05/06/20 22:00 Piperacillin/Tazobactam/Dext [Zosyn in Dextrose Iso-Osmotic] 4.5 gm Premix Bag 1 bag IV Q8HR
[2020-05-06] MEDS ORDERED: Sodium Chloride 0.9% 10 ML Syringe FLUSH PRN (13:29)
[2020-05-06] MEDS ORDERED: Sodium Chloride 0.9% 75 ML IV ONE (13:29)
[2020-05-06] MEDS ORDERED: Iopamidol 612 MG/ML 150 ML Bottle IV SCH (13:30)
--- NOTE | 2020-05-06 14:12 | CT ---
Abdomen Pelvis w Cont CLINICAL HISTORY: Right lower quadrant pain COMPARISON: None. TECHNIQUE: Axial tomographic images are obtained from the dome of the diaphragm to the pubic symphysis with IV contrast enhancement. No oral contrast was used. Auto dosage reduction and iterative reconstruction techniques employed. FINDINGS: There is a fluid-filled tubular structure off the tip of the cecum which is 1 cm in diameter. There is some wall enhancement. There is some inflammatory change in the surrounding fat. There are small calcifications near its junction with the cecum consistent with the appendicitis. The lung bases are clear. The liver shows no mass or biliary dilatation. The gallbladder has a normal appearance. The spleen has a normal size and shape. The pancreas shows no mass or inflammatory change. The adrenal glands appear normal bilaterally. The kidneys show no mass, stones or hydronephrosis. The aorta has a normal contour. There is no suspicious retroperitoneal adenopathy. Ureters have a normal course and caliber. The bladder has a normal contour. There is a small amount of free fluid in the pelvis. There is a cylindrical fluid density focus just anterior to the left lobe of the liver measuring 1 x 2 x 8 cm. There is no enhancement or wall. There is a small tubular connection to the falciform ligament. This may represent some anatomic variant or remanent. This is not felt to be related to the free peritoneal fluid seen in the lower abdomen and pelvis. IMPRESSION: Findings consistent with acute appendicitis. No abscess is identified. Small tubular fluid collection anterior left lobe of the liver is felt to be anatomic variant or a remanent.
[2020-05-06] MEDS ORDERED: Succinylcholine 200 MG/10 ML MDV ONE (14:13)
[2020-05-06] MEDS ORDERED: fentaNYL 250 MCG/5 ML SDV ONE (14:13)
[2020-05-06] MEDS ORDERED: Neostigmine Methylsulfate 1 MG/ML 5 ML Syringe ONE (14:13)
[2020-05-06] MEDS ORDERED: Rocuronium 50 MG/5 ML Vial ONE (14:13)
[2020-05-06] MEDS ORDERED: Ondansetron 4 MG/2 ML SDV ONE (14:13)
[2020-05-06] MEDS ORDERED: Glycopyrrolate 0.2 MG/ML 5 ML MDV ONE (14:13)
[2020-05-06] MEDS ORDERED: Dexamethasone 4 MG/ML SDV ONE (14:13)
[2020-05-06] MEDS ORDERED: Propofol 200 MG/20 ML SDV ONE (14:13)
[2020-05-06] MEDS ORDERED: Midazolam 1 MG/ML 2 ML SDV ONE (14:13)
[2020-05-06] MEDS ORDERED: Bupivacaine 0.5% 50 ML MDV ONE (14:14)
[2020-05-06] MEDS ORDERED: Lidocaine 1% with EPINEPHrine 1:100,000 50 ML MDV ONE (14:14)
[2020-05-06] MEDS ORDERED: Bupivacaine 0.5%/EPINEPHrine 1:200,000 50 ML MDV ONE (14:17)
[2020-05-06] MEDS ORDERED: Piperacillin/Tazobactam 4.5 GM in Sodium Chloride 0.9% 100 ML IV SCH (14:45)
[2020-05-06] MEDS ORDERED: Ropivacaine 38 ML, dexAMETHasone 8 MG, EPINEPHrine 0.4 MG, Sodium Chloride 0.9% 39.6 ML NERVRT SCH ×4 (15:00)
[2020-05-06] MEDS ORDERED: Lactated Ringers 1,000 ML IV SCH (15:00)
[2020-05-06] MEDS ORDERED: Piperacillin/Tazobactam/Dext 4.5 GM in Premix Bag 1 BAG IV SCH (15:00)
[2020-05-06] MEDS ORDERED: Benzocaine/Cetylpyridinium/Menthol Lozenge MUCMEM PRN (15:12)
[2020-05-06] MEDS ORDERED: hydrOXYzine HCL 100 MG/2 ML SDV IM PRN (15:12)
[2020-05-06] MEDS ORDERED: Zolpidem 5 MG Tab PO PRN (15:12)
[2020-05-06] MEDS ORDERED: Docusate Sodium 100 MG Cap PO PRN (15:12)
[2020-05-06] MEDS ORDERED: fentaNYL 100 MCG/2 ML SDV IVPUSH PRN (15:14)
[2020-05-06] MEDS ORDERED: Promethazine 25 MG/ML SDV IM PRN (15:14)
[2020-05-06] MEDS ORDERED: Ketorolac 60 MG/2 ML SDV ONE (15:41)
[2020-05-06] MEDS ORDERED: hydrOXYzine HCL 100 MG/2 ML SDV IM ONE (15:42)
[2020-05-06] MEDS: Nicotine 21 MG/24 Hr Patch TRDERM SCH (18:22)
[2020-05-06] MEDS: Acetaminophen/HYDROcodone 325-5 MG Tab PO PRN (18:22)
[2020-05-06] MEDS: Piperacillin/Tazobactam/Dext 4.5 GM in Premix Bag 1 BAG IV SCH (21:16)
--- NOTE | 2020-05-06 22:47 | CONS ---
DATE OF SERVICE: 05/06/2020 REFERRING PHYSICIAN: CONSULTING PHYSICIAN: Sen Odell MD Consult for Dr. Mendoza. REASON FOR CONSULTATION: Abdominal pain. HISTORY OF PRESENT ILLNESS: A 24-year-old male with right lower quadrant pain that has been there for about 24 to 48 hours. This originally was periumbilical and now it is in the right lower quadrant. Some nausea. No vomiting, shortness of breath, or chest pain. He remains afebrile. PAST MEDICAL HISTORY: 1. Heart murmur as a child. 2. Irritable bowel. 3. ADHD. REVIEW OF SYSTEMS: GENERAL: The patient is appropriate for condition. HEENT: No symptoms. CARDIOVASCULAR: No chest pain. RESPIRATORY: No history of shortness of breath. GASTROINTESTINAL: Irritable bowel. NEUROLOGICAL: No changes. PSYCHIATRIC: ADHD, suicidal ideations, pedophilia and zoophilia per chart. The remainder of systems is reviewed and is negative. SOCIAL HISTORY: He is a smoker. FAMILY HISTORY: Noncontributory. PHYSICAL EXAMINATION: VITAL SIGNS: Temperature 99.2, blood pressure 112/77, pulse 97, respirations 97% on room air, rate 15. GENERAL: The patient is resting comfortably. HEENT: Pupils are equal. NECK: Supple. CARDIOVASCULAR: Regular rhythm and rate. LUNGS: Clear auscultation bilaterally. ABDOMEN: Pain with palpation, right lower quadrant extremities. EXTREMITIES: Full range of motion. NEUROLOGIC: Oriented x3. PSYCHIATRIC: No gross depression. LABORATORY RESULTS: Show a white blood cell count of 15,000. IMAGING DATA: I did a review the CT scan which shows acute appendicitis. ASSESSMENT: To the operating room for an appendectomy. RISKS: We discussed risks, benefits, alternatives, and limitations including, but not limited to infection, bleeding, and perforation of abdominal structures, abscess formation, septic shock, , open surgery, injury to bladder and blood vessels, and other risks not listed here. The patient understands these risks and wishes to proceed. Sen Odell MD /[id number]
[2020-05-07] MEDS: Acetaminophen/HYDROcodone 325-5 MG Tab PO PRN ×3 (00:24→10:43)
[2020-05-07] MEDS: Piperacillin/Tazobactam/Dext 4.5 GM in Premix Bag 1 BAG IV SCH (05:31)
--- NOTE | 2020-05-07 08:07 | OR ---
DATE OF PROCEDURE: 05/06/2020 SURGEON: Sen Odell MD PROCEDURE: Laparoscopic appendectomy. FINDINGS: Nonperforated acute appendicitis. COMPLICATIONS: None. RN BABY: None. ANESTHESIA: General. RISKS: Risks, benefits, alternatives, and limitations including, but not limited to infection, bleeding, perforation of abdominal structures, sepsis, abscess, possibility of open surgery and other risks not listed here were explained to the patient, and they wished to proceed. PROCEDURE IN DETAIL: The patient was placed in a supine position. A curvilinear supraumbilical incision was made. A Veress needle was used to enter the abdomen without abnormality. A drop test was performed without abnormality. The abdomen was subsequently insufflated. An Optiview trocar was inserted. No evidence of enterotomy or injury was noted. Two additional 5 mm ports were entered under direct visualization. The appendix was readily identified. This appeared to be suppurative, but nonperforated. This was transected with a single khan load stapler. No evidence of abnormal bleeding was noted. The pressure was dropped. No venous bleeding. This was then delivered with a bag. The abdomen was reinspected: An additional liter of irrigation was used. The wound was closed with 3-0 Vicryl and 4-0 Vicryl and Dermabond was applied. The patient tolerated the procedure well. Sen Odell MD /[id number]
--- NOTE | 2020-05-07 08:18 | OR ---
DATE OF PROCEDURE: 05/06/2020 SURGEON: Sen Odell MD PROCEDURE: Transversus abdominis plane block bilaterally. COMPLICATIONS: None. PORK CUTLET MAKER: None. RISKS: Risks, benefits, alternatives, and limitations including, but not limited to infection, bleeding, injury to abdominal structures were explained to the patient, who wished to proceed. PROCEDURE IN DETAIL: The patient was placed in supine position. The right transversus plane was identified first. This was accessed using 13 megahertz ultrasound probe. 90% of the solution was injected on that side. The other side was identified, injected in same manner, same fashion, same technique, in the same sequence, using the same equipment, except for different needle and syringe. The patient tolerated the procedure well. Sen Odell MD /[id number]
[2020-05-07] MEDS: Nicotine 21 MG/24 Hr Patch TRDERM SCH (09:41)
[2020-05-07 10:46] VITALS: BP 109/59; PULSE 97
--- NOTE | 2020-05-07 15:27 | PN ---
DATE OF SERVICE: 05/07/2020 SUBJECTIVE: The patient is doing very well. Pain is well controlled. No nausea, vomiting, shortness of breath, or chest pain. OBJECTIVE: VITAL SIGNS: Afebrile per nursing report. CARDIOVASCULAR: Regular rhythm and rate. RESPIRATORY: Lungs clear to auscultation bilaterally. SKIN: Incision is healing well. ASSESSMENT: Status post appendectomy. PLAN: The patient will be discharged today. Please see discharge summary for further details. Sen Odell MD /[id number]
--- NOTE | 2020-05-07 16:05 | DISCH ---
DISCHARGE DIAGNOSIS: Status post appendectomy. SUMMARY OF HOSPITAL COURSE: A 24-year-old male who underwent uneventful laparoscopic appendectomy. His pain is well controlled. Prior to discharge, he had no nausea, vomiting, shortness of breath, or chest pain. FOLLOWUP: With Surgery in 7 to 14 days. DISCHARGE MEDICATIONS: Please see the MAR that include [place] for pain.
== END 2020-05-07 13:50 | disposition home or self-care (01) ==
LOC: JP.ED 12:35 → JP.SDS 14:16 → JP.SDSSCHI 15:12 → JP.MS 15:12 → UNDOADMOB 15:12 → JP.MS 15:12 → JP.SDS 15:12 → JP.MS 05-07 13:50 → JP.SDS 05-07 13:50 → UNDODISOB 05-07 13:50
PROVIDERS: ATTEND Surgery
DX: K35.80 Unspecified acute appendicitis (principal); F90.9 Attention-deficit hyperactivity disorder, unspecified type; F17.210 Nicotine dependence, cigarettes, uncomplicated; Z01.812 Encounter for preprocedural laboratory examination; Z20.828 Contact with and (suspected) exposure to other viral communicable diseases
CPT/HCPCS: 36415; 44970; 51702; 74177; 80048; 80053; 81001; 85025; 85027; 87070; 87075; 87077; 87186; 87205; 96361; 96365; 96372; 96375; 96376; 99285; A9270; J0171; J0330; J1100; J1170; J1885; J2250; J2405; J2543; J2704; J2710; J2795; J3010; J3410; J3490; J7050; J7120; Q9967; U0002; 88304

== ENCOUNTER 2021-02-15 10:50 | Emergency (ER) | payer MEDICARE, MEDICAID ==
[2021-02-15 11:04] VITALS: BP 105/61; PULSE 76
[2021-02-15] MEDS ORDERED: Ibuprofen 600 MG Tab PO ONE (11:41)
--- NOTE | 2021-02-15 11:47 | EDM.PDOC ---
ED HPI GENERAL MEDICAL PROBLEM - General Chief Complaint: General Stated Complaint: LOWER BACK AND RIGHT ANKLE PAIN Time Seen by Provider: 02/15/21 11:30 Source of Information: Reports: Patient History Limitations: Reports: No Limitations - History of Present Illness INITIAL COMMENTS - FREE TEXT/NARRATIVE: 25 yo male presents with R lateral ankle pain from an inversion injury yesterday afternoon. He also has low back pain chronically that he attributes to incorrect lifting technique. He has not sought care for either of these problems from his primary care provider. No self tx prior to arrival. 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 murmur Respiratory History: Reports: Bronchitis, Recurrent Other Respiratory History: RSV Gastrointestinal History: Reports: Irritable Bowel Syndrome Other Gastrointestinal History: CONSTIPATION Genitourinary History: Reports: None Musculoskeletal History: Reports: None Neurological History: Reports: None Psychiatric History: Reports: ADHD, Anxiety, Depression, Suicidal Ideation Other Psychiatric History: pedophilia Zoophilia Endocrine/Metabolic History: Reports: None Hematologic History: Reports: None Immunologic History: Reports: None Oncologic (Cancer) History: Reports: None Dermatologic History: Reports: None - Infectious Disease History Infectious Disease History: Reports: None - Past Surgical History GI Surgical History: Reports: Appendectomy Male Surgical History: Reports: None Social & Family History - Family History Family Medical History: Unobtainable - Tobacco Use Tobacco Use Status *Q: Light Tobacco User Years of Tobacco use: 4 Packs/Tins Daily: 2 Tobacco Use Comment: currently on nicotene patches. - Caffeine Use Caffeine Use: Reports: Coffee, Energy Drinks, Soda, Tea - Recreational Drug Use Recreational Drug Use: Yes Recreational Drug Type: Reports: Marijuana/Hashish - Living Situation & Occupation Living situation: Reports: Single Occupation: Employed (lives [place] away from [facility]) ED ROS GENERAL - Review of Systems Review Of Systems: See Below Constitutional: Reports: No Symptoms Musculoskeletal: Reports: Back Pain (low), Joint Pain (R lat ankle) Skin: Reports: No Symptoms Neurological: Reports: No Symptoms ED EXAM, GENERAL - Physical Exam Exam: See Below Exam Limited By: No Limitations General Appearance: Alert, WD/WN, No Apparent Distress Back Exam: Paraspinal Tenderness (mild). No: CVA Tenderness (R), CVA Tenderness (L), Vertebral Tenderness Extremities: Normal Inspection, Normal Range of Motion, Non-Tender, No Pedal Edema, Other (normal ankle exam). No: Pedal Edema Neurological: Alert, Oriented, CN II-XII Intact, Normal Cognition, No Motor/Sensory Deficits Psychiatric: Normal Affect, Normal Mood Skin Exam: Warm, Dry, Intact, Normal Color, No Rash Course - Vital Signs Last Recorded V/S: Last Vital Signs Temp 36.7 C 02/15/21 11:09 Pulse 76 02/15/21 11:09 Resp 18 02/15/21 11:09 BP 105/61 02/15/21 11:09 Pulse Ox 100 02/15/21 11:09 - Orders/Labs/Meds Orders: Active Orders 24 hr Category Date Time Status Ibuprofen [Motrin] Med 02/15/21 11:41 Once 600 mg PO ONETIME ONE Medication Orders Ibuprofen (Ibuprofen 600 Mg Tab) 600 mg PO ONETIME ONE Stop: 02/15/21 11:42 Meds: Medications Generic Name Dose Route Start Last Admin Trade Name Freq PRN Reason Stop Dose Admin Ibuprofen 600 mg 02/15/21 11:41 Ibuprofen 600 Mg Tab PO 02/15/21 11:42 ONETIME ONE Departure - Departure Time of Disposition: 11:45 Disposition: Home, Self-Care 01 Condition: Good Clinical Impression: Mild ankle sprain Qualifiers: Encounter type: initial encounter Laterality: right Qualified Code(s): S93.401A - Sprain of unspecified ligament of right ankle, initial encounter Low back pain Qualifiers: Chronicity: unspecified Back pain laterality: midline Sciatica presence: without sciatica Qualified Code(s): M54.5 - Low back pain - Discharge Information *PRESCRIPTION DRUG MONITORING PROGRAM REVIEWED*: Not Applicable *COPY OF PRESCRIPTION DRUG MONITORING REPORT IN PATIENT SADIE: Not Applicable Referrals: PCP,None [Primary Care Provider] - Additional Instructions: Use DICK wrap for support. Take ibuprofen as needed for pain relief. F/U with PT regarding low back exercises and lifting techniques. See your doctor as needed. Sepsis Event Note (ED) - Evaluation Sepsis Screening Result: No Definite Risk - Focused Exam Vital Signs: Vital Signs Temp Pulse Resp BP Pulse Ox 02/15/21 11:09 36.7 C 76 18 105/61 100 02/15/21 11:02 36.7 C 76 105/61 100 - My Orders Last 24 Hours: My Active Orders 02/15/21 11:41 Ibuprofen [Motrin] 600 mg PO ONETIME ONE - Assessment/Plan Last 24 Hours: My Active Orders 02/15/21 11:41 Ibuprofen [Motrin] 600 mg PO ONETIME ONE
== END 2021-02-15 11:56 | disposition home or self-care (01) ==
LOC: JP.ED 10:50
DX: S93.401A Sprain of unspecified ligament of right ankle, initial encounter (principal); M54.5 Low back pain; Z72.0 Tobacco use; X50.1XXA Overexertion from prolonged static or awkward postures, initial encounter
CPT/HCPCS: 99283

== ENCOUNTER 2021-03-20 06:50 | Emergency (ER) | payer MEDICARE, MEDICAID, OTHER ==
[2021-03-20 07:22] VITALS: BP 102/65; PULSE 86
[2021-03-20] MEDS ORDERED: Sodium Chloride 0.9% 10 ML Syringe FLUSH PRN (07:37)
[2021-03-20] MEDS ORDERED: Loperamide 2 MG Cap PO ONE (07:38)
--- NOTE | 2021-03-20 07:41 | EDM.PDOC ---
ED HPI GENERAL MEDICAL PROBLEM - General Chief Complaint: Abdominal Pain Stated Complaint: STOMACH ACHE Time Seen by Provider: 03/20/21 07:33 Source of Information: Reports: Patient, RN Notes Reviewed History Limitations: Reports: No Limitations - History of Present Illness INITIAL COMMENTS - FREE TEXT/NARRATIVE: 25-year-old male presents emergency department today with complaint of diarrhea, he states it is mostly water brown in color started about 6 hours prior no nausea vomiting or shortness of breath no fevers denies any sick contacts he recently started taking magnesium and potassium for his ongoing leg cramps. He is the only one that is ill - Related Data Allergies Allergy/AdvReac Type Severity Reaction Status Date / Time No Known Allergies Allergy Verified 02/15/21 11:09 Home Meds: Home Meds Albuterol [Ventolin HFA] 1 puff INH Q4HR PRN 01/01/18 [History] Mirtazapine 15 mg PO DAILY 02/15/21 [History] Magnesium 250 mg PO DAILY 03/20/21 [History] Potassium Gluconate [Potassium] 99 mg PO DAILY 03/20/21 [History] Past Medical History HEENT History: Reports: Allergic Rhinitis, Impaired Vision Other Cardiovascular History: ? murmur Respiratory History: Reports: Bronchitis, Recurrent Other Respiratory History: RSV Gastrointestinal History: Reports: Irritable Bowel Syndrome Other Gastrointestinal History: CONSTIPATION Psychiatric History: Reports: ADHD, Anxiety, Depression, Suicidal Ideation Other Psychiatric History: pedophilia Zoophilia - Past Surgical History GI Surgical History: Reports: Appendectomy Male Surgical History: Reports: None Social & Family History - Family History Family Medical History: Unobtainable - Tobacco Use Tobacco Use Status *Q: Current Every Day Tobacco User Years of Tobacco use: 10 Packs/Tins Daily: 1.5 - Caffeine Use Caffeine Use: Reports: Coffee, Energy Drinks, Soda, Tea - Recreational Drug Use Recreational Drug Use: Yes Recreational Drug Type: Reports: Marijuana/Hashish Recreational Drug Use Frequency: Daily - Living Situation & Occupation Living situation: Reports: Single Occupation: Employed (lives [address] [facility]) ED ROS GENERAL - Review of Systems Review Of Systems: See Below Constitutional: Reports: No Symptoms HEENT: Reports: No Symptoms Respiratory: Reports: No Symptoms Cardiovascular: Reports: No Symptoms GI/Abdominal: Reports: Abdominal Pain (Cramping), Diarrhea. Denies: Nausea, Vomiting : Reports: No Symptoms ED EXAM, GI/ABD - Physical Exam Exam: See Below Exam Limited By: No Limitations General Appearance: Alert, WD/WN, No Apparent Distress Respiratory/Chest: No Respiratory Distress, Lungs Clear, Normal Breath Sounds, No Accessory Muscle Use, Chest Non-Tender Cardiovascular: Regular Rate, Rhythm, No Murmur GI/Abdominal Exam: Soft, Non-Tender Course - Vital Signs Last Recorded V/S: Last Vital Signs Temp 98.0 F 03/20/21 07:24 Pulse 86 03/20/21 07:24 Resp 16 03/20/21 07:24 BP 102/65 03/20/21 07:24 Pulse Ox 98 03/20/21 07:24 - Orders/Labs/Meds Orders: Active Orders 24 hr Category Date Time Status Peripheral IV Care [RC] . DIRECTED Care 03/20/21 07:38 Active Lactated Ringers [Ringers, Lactated] 1,000 ml Med 03/20/21 07:45 Active IV ASDIRECTED Sodium Chloride 0.9% [Saline Flush] Med 03/20/21 07:37 Active 10 ml FLUSH ASDIRECTED PRN Peripheral IV Insertion Adult [OM.PC] Urgent Oth 03/20/21 07:37 Ordered Medication Orders Lactated Ringer's (Ringers, Lactated) 1,000 mls @ 999 mls/hr IV ASDIRECTED KAUSHIK Last Admin: 03/20/21 07:58 Dose: 999 mls/hr Documented by: MINOO Sodium Chloride (Sodium Chloride 0.9% 10 Ml Syringe) 10 ml FLUSH ASDIRECTED PRN PRN Reason: Keep Vein Open Last Admin: 03/20/21 08:53 Dose: 10 ml Documented by: MINOO Labs: Laboratory Tests 03/20/21 03/20/21 03/20/21 Range/Units 07:50 07:50 07:50 WBC 8.0 (4.5-11.0) K/uL RBC 4.94 (4.30-5.90) M/uL Hgb 14.8 (12.0-15.0) g/dL Hct 42.8 (40.0-54.0) % MCV 87 (80-98) fL MCH 30 (27-31) pg MCHC 35 (32-36) % Plt Count 212 (150-400) K/uL Neut % (Auto) 75.5 H (36-66) % Lymph % (Auto) 13.3 L (24-44) % Wolfe % (Auto) 9.5 H (2-6) % Eos % (Auto) 1.6 L (2-4) % Baso % (Auto) 0.1 (0-1) % Sodium 141 (140-148) mmol/L Potassium 3.6 (3.6-5.2) mmol/L Chloride 104 (100-108) mmol/L Carbon Dioxide 27 (21-32) mmol/L Anion Gap 10.3 (5.0-14.0) mmol/L BUN 11 (7-18) mg/dL Creatinine 1.1 (0.8-1.3) mg/dL Est Cr Clr Drug Dosing 103.55 mL/min Estimated GFR (MDRD) > 60 (>60) Glucose 99 (74-106) mg/dL Lactic Acid 0.8 (0.4-2.0) mmol/L Calcium 8.4 L (8.5-10.1) mg/dL Total Bilirubin 0.4 (0.2-1.0) mg/dL AST 20 (15-37) U/L ALT 22 (12-78) U/L Alkaline Phosphatase 36 L (46-116) U/L Total Protein 6.2 L (6.4-8.2) g/dL Albumin 3.5 (3.4-5.0) g/dL Globulin 2.7 (2.3-3.5) g/dL Albumin/Globulin Ratio 1.3 (1.2-2.2) Meds: Medications Generic Name Dose Route Start Last Admin Trade Name Freq PRN Reason Stop Dose Admin Lactated Ringer's 1,000 mls @ 999 mls/hr 03/20/21 07:45 03/20/21 07:58 Ringers, Lactated IV 999 mls/hr ASDIRECTED KAUSHIK Administration Sodium Chloride 10 ml 03/20/21 07:37 03/20/21 08:53 Sodium Chloride 0.9% 10 Ml Syringe FLUSH 10 ml ASDIRECTED PRN Administration Keep Vein Open Discontinued Medications Generic Name Dose Route Start Last Admin Trade Name Freq PRN Reason Stop Dose Admin Loperamide HCl 2 mg 03/20/21 07:38 03/20/21 07:58 Loperamide 2 Mg Cap PO 03/20/21 07:39 2 mg ONETIME ONE Administration Departure - Departure Time of Disposition: 09:36 Disposition: Home, Self-Care 01 Condition: Fair Clinical Impression: Diarrhea Qualifiers: Diarrhea type: unspecified type Qualified Code(s): R19.7 - Diarrhea, unspecified - Discharge Information Instructions: Diarrhea, Adult Referrals: PCP,None [Primary Care Provider] - Forms: ED Department Discharge Additional Instructions: Continue to push fluids, use Imodium if you have need to, please followup with your primary care provider in 3-5 days if not better, please call return to the emergency department with worsening of symptoms. Sepsis Event Note (ED) - Evaluation Sepsis Screening Result: No Definite Risk - Focused Exam Vital Signs: Vital Signs Temp Pulse Resp BP Pulse Ox 03/20/21 07:24 98.0 F 86 16 102/65 98 03/20/21 07:21 98.0 F 86 16 102/65 98 - My Orders Last 24 Hours: My Active Orders 03/20/21 07:37 Sodium Chloride 0.9% [Saline Flush] 10 ml FLUSH ASDIRECTED PRN Peripheral IV Insertion Adult [OM.PC] Urgent 03/20/21 07:38 Peripheral IV Care [RC] . DIRECTED 03/20/21 07:45 Lactated Ringers [Ringers, Lactated] 1,000 ml IV ASDIRECTED - Assessment/Plan Last 24 Hours: My Active Orders 03/20/21 07:37 Sodium Chloride 0.9% [Saline Flush] 10 ml FLUSH ASDIRECTED PRN Peripheral IV Insertion Adult [OM.PC] Urgent 03/20/21 07:38 Peripheral IV Care [RC] . DIRECTED 03/20/21 07:45 Lactated Ringers [Ringers, Lactated] 1,000 ml IV ASDIRECTED Plan: Assessment Acuity = acute Site and laterality = diarrhea Etiology = probably viral Manifestations = none Location of injury = Home Lab values = CBC CMP lactic acid within normal limits Plan Good improvement 1 L fluid and Imodium had no loose stools while in the emergency department, and follow-up with your primary care in 3 to 5 days if no improvement This note was dictated using [employer] voice recognition software please call with any questions on syntax or grammar.
[2021-03-20] MEDS ORDERED: Lactated Ringers 1,000 ML IV SCH (07:45)
== END 2021-03-20 09:50 | disposition home or self-care (01) ==
LOC: JP.ED 06:50
DX: R19.7 Diarrhea, unspecified (principal); R10.9 Unspecified abdominal pain; Z90.49 Acquired absence of other specified parts of digestive tract; Z79.899 Other long term (current) drug therapy; Z72.0 Tobacco use
CPT/HCPCS: 36415; 80053; 83605; 85025; 99284; A9270; J7120

== ENCOUNTER 2021-07-01 20:11 | Emergency (ER) | payer MEDICARE, MEDICAID ==
[2021-07-01 20:32] VITALS: BP 107/56; PULSE 75
--- NOTE | 2021-07-01 20:40 | EDM.PDOC ---
ED HPI GENERAL MEDICAL PROBLEM - General Chief Complaint: Laceration Stated Complaint: CUT ON LT FINGER Time Seen by Provider: 07/01/21 20:25 Source of Information: Reports: Patient History Limitations: Reports: No Limitations - History of Present Illness INITIAL COMMENTS - FREE TEXT/NARRATIVE: 25-year-old male cut his finger this morning while cleaning a deer, it has bled a couple of times so he wanted it checked. No other injury. Onset: Sudden Duration: Hour(s): (10 hours ago) Location: Reports: Other (Left index finger) - Related Data Allergies Allergy/AdvReac Type Severity Reaction Status Date / Time No Known Allergies Allergy Verified 07/01/21 20:33 Home Meds: Home Meds Albuterol [Ventolin HFA] 1 puff INH Q4HR PRN 01/01/18 [History] Mirtazapine 15 mg PO DAILY 02/15/21 [History] Magnesium 250 mg PO DAILY 03/20/21 [History] Potassium Gluconate [Potassium] 99 mg PO DAILY 03/20/21 [History] Past Medical History HEENT History: Reports: Allergic Rhinitis, Impaired Vision Other Cardiovascular History: ? murmur Respiratory History: Reports: Bronchitis, Recurrent Other Respiratory History: RSV Gastrointestinal History: Reports: Irritable Bowel Syndrome Other Gastrointestinal History: CONSTIPATION Genitourinary History: Reports: None Musculoskeletal History: Reports: None Neurological History: Reports: None Psychiatric History: Reports: ADHD, Anxiety, Depression, Suicidal Ideation Other Psychiatric History: pedophilia Zoophilia Endocrine/Metabolic History: Reports: None Hematologic History: Reports: None Immunologic History: Reports: None Oncologic (Cancer) History: Reports: None Dermatologic History: Reports: None - Infectious Disease History Infectious Disease History: Reports: None - Past Surgical History GI Surgical History: Reports: Appendectomy Male Surgical History: Reports: None Social & Family History - Family History Family Medical History: Unobtainable - Tobacco Use Tobacco Use Status *Q: Unknown Ever Used Tobacco - Caffeine Use Caffeine Use: Reports: Coffee, Energy Drinks, Soda, Tea - Recreational Drug Use Recreational Drug Use: No - Living Situation & Occupation Living situation: Reports: Single Occupation: Employed (lives [place] [address] away from [facility]) ED ROS GENERAL - Review of Systems Review Of Systems: See Below Constitutional: Denies: Fever, Chills HEENT: Reports: No Symptoms Respiratory: Reports: No Symptoms GI/Abdominal: Reports: No Symptoms Neurological: Reports: No Symptoms ED EXAM, SKIN/RASH Exam: See Below Exam Limited By: No Limitations General Appearance: Alert, No Apparent Distress Head: Atraumatic Respiratory/Chest: No Respiratory Distress Extremities: Other (Exam is otherwise limited to the left hand. Patient has a small curved 1 cm laceration near the tip of the index finger, it shallow and edges are approximated) Neurological: Alert, Oriented Course - Vital Signs Last Recorded V/S: Last Vital Signs Temp 98.3 F 07/01/21 20:31 Pulse 75 07/01/21 20:31 Resp 16 07/01/21 20:31 BP 107/56 L 07/01/21 20:31 Pulse Ox 97 07/01/21 20:31 - Orders/Labs/Meds Meds: Medications Discontinued Medications Generic Name Dose Route Start Last Admin Trade Name Jemal PRN Reason Stop Dose Admin Bacitracin 1 dose 07/01/21 20:42 07/01/21 20:45 Bacitracin Oint 1 Gm U/D Packet TOP 07/01/21 20:43 1 dose ONETIME ONE Administration Bacitracin Confirm 07/01/21 20:41 Bacitracin Oint 1 Gm U/D Packet Administered 07/01/21 20:42 Dose 1 dose .ROUTE .STK-MED ONE - Re-Assessments/Exams Free Text/Narrative Re-Assessment/Exam: 07/01/21 20:39 No repair needed, topical bacitracin and a Band-Aid was applied. He should keep the wound clean while healing and can recheck if concerns of infection. Departure - Departure Time of Disposition: 20:50 Disposition: Home, Self-Care 01 Clinical Impression: Finger laceration Qualifiers: Encounter type: initial encounter Finger: index finger Damage to nail status: without damage Foreign body presence: without foreign body Laterality: left Qualified Code(s): S61.211A - Laceration without foreign body of left index finger without damage to nail, initial encounter - Discharge Information Instructions: Laceration Care, Adult Referrals: PCP,None [Primary Care Provider] - Forms: ED Department Discharge Care Plan Goals: Keep the wound covered and clean while healing, increase activity as tolerated. Recheck if concerns of infection or not healing satisfactorily. Sepsis Event Note (ED) - Evaluation Sepsis Screening Result: No Definite Risk - Focused Exam Vital Signs: Vital Signs Temp Pulse Resp BP Pulse Ox 07/01/21 20:31 98.3 F 75 16 107/56 L 97
[2021-07-01] MEDS ORDERED: Bacitracin Oint 1 GM U/D Packet ONE (20:41)
[2021-07-01] MEDS ORDERED: Bacitracin Oint 1 GM U/D Packet TOP ONE (20:42)
== END 2021-07-01 20:50 | disposition home or self-care (01) ==
LOC: JP.ED 20:11
DX: S61.211A Laceration without foreign body of left index finger without damage to nail, initial encounter (principal); W26.8XXA Contact with other sharp object(s), not elsewhere classified, initial encounter
CPT/HCPCS: 99282

== ENCOUNTER 2021-08-15 07:45 | Emergency (ER) | payer MEDICARE, MEDICAID ==
--- NOTE | 2021-08-15 08:24 | EDM.PDOC ---
ED HPI GENERAL MEDICAL PROBLEM - General Chief Complaint: Respiratory Problem Stated Complaint: COVID/COLD SYMPTOMS Time Seen by Provider: 08/15/21 08:05 Source of Information: Reports: Patient, Old Records, RN History Limitations: Reports: No Limitations - History of Present Illness INITIAL COMMENTS - FREE TEXT/NARRATIVE: 25 yo male smoker presents with cold sx's for a couple weeks. Now seems to be coughing more. No def'n fever, feels hot and cold at times. Has not been seen for this before today. Has nasal congestion and a considerable amt of clear nasal d/c. Cough is occasionally productive. Has an albuterol inhaler at home. He is not SOB. Onset: Gradual Duration: Week(s): (2), Getting Worse Location: Reports: Face (nose), Chest Quality: Reports: Other (no pain) Severity: Moderate Improves with: Reports: None Worsens with: Reports: Other (? slowly over time) Context: Reports: Other (See HPI) Associated Symptoms: Reports: Cough, Fever/Chills (no fever). 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 murmur Respiratory History: Reports: Bronchitis, Recurrent Other Respiratory History: RSV Gastrointestinal History: Reports: Chronic Constipation, Irritable Bowel Syndrome Other Gastrointestinal History: CONSTIPATION Genitourinary History: Reports: None Musculoskeletal History: Reports: None Neurological History: Reports: None Psychiatric History: Reports: ADHD, Anxiety, Depression, Suicidal Ideation Other Psychiatric History: pedophilia Zoophilia Endocrine/Metabolic History: Reports: None Hematologic History: Reports: None Immunologic History: Reports: None Oncologic (Cancer) History: Reports: None Dermatologic History: Reports: None - Infectious Disease History Infectious Disease History: Reports: None - Past Surgical History GI Surgical History: Reports: Appendectomy Male Surgical History: Reports: None Social & Family History - Family History Family Medical History: Unobtainable - Caffeine Use Caffeine Use: Reports: Coffee, Energy Drinks, Soda, Tea - Living Situation & Occupation Living situation: Reports: Single Occupation: Employed (lives [place] mins away from [facility]) ED ROS GENERAL - Review of Systems Review Of Systems: See Below Constitutional: Reports: Malaise. Denies: Fever, Chills HEENT: Reports: No Symptoms Respiratory: Reports: Cough, Sputum (at times). Denies: Shortness of Breath Cardiovascular: Reports: No Symptoms GI/Abdominal: Reports: No Symptoms : Reports: No Symptoms Musculoskeletal: Reports: No Symptoms Skin: Reports: No Symptoms Neurological: Reports: No Symptoms ED EXAM, GENERAL - Physical Exam Exam: See Below Exam Limited By: No Limitations General Appearance: Alert, WD/WN, No Apparent Distress Eye Exam: Bilateral Eye: Normal Inspection Ears: Normal External Exam, Normal Canal, Hearing Grossly Normal, Normal TMs Ear Exam: Bilateral Ear: Auricle Normal, Canal Normal, TM normal Nose: Clear Rhinorrhea, Other (congestion) Throat/Mouth: Normal Inspection, Normal Lips, Normal Oropharynx, Normal Voice, No Airway Compromise Head: Atraumatic, Normocephalic Neck: Normal Inspection Respiratory/Chest: No Respiratory Distress, Lungs Clear, Normal Breath Sounds, No Accessory Muscle Use Cardiovascular: Regular Rate, Rhythm, No Edema Extremities: Normal Inspection, Normal Range of Motion, Non-Tender, No Pedal Edema Neurological: Alert, Oriented, CN II-XII Intact, Normal Cognition, No Mo tor/Sensory Deficits Psychiatric: Normal Affect, Normal Mood Skin Exam: Warm, Dry, Intact, Normal Color, No Rash Course - Orders/Labs/Meds Orders: Active Orders 24 hr Category Date Time Status COVID-19/FLU A+B/RSV [MOLEC] Stat Lab 08/15/21 07:50 Ordered Isolation [COMM] Stat Oth 08/15/21 07:50 Ordered Departure - Departure Time of Disposition: 08:26 Disposition: Home, Self-Care 01 Condition: Good Clinical Impression: Viral URI with cough - Discharge Information *PRESCRIPTION DRUG MONITORING PROGRAM REVIEWED*: No *COPY OF PRESCRIPTION DRUG MONITORING REPORT IN PATIENT SADIE: No Instructions: Upper Respiratory Infection, Adult, [id number] Referrals: PCP,Unknown [Primary Care Provider] - Additional Instructions: Use your albuterol 2 puffs every 4 hrs as needed. Avoid smoke of all kinds. Use Robitussin AC for cough. Recheck with your provider as needed. - My Orders Last 24 Hours: My Active Orders 08/15/21 07:50 COVID-19/FLU A+B/RSV [MOLEC] Stat Isolation [COMM] Stat - Assessment/Plan Last 24 Hours: My Active Orders 08/15/21 07:50 COVID-19/FLU A+B/RSV [MOLEC] Stat Isolation [COMM] Stat
[2021-08-15 08:34] VITALS: BP 131/65; PULSE 100
[2021-08-15 09:09] LABS: CORONAVIRUS COVID-19 NAA NEGATIVE (NEGATIVE)
== END 2021-08-15 08:49 | disposition home or self-care (01) ==
LOC: JP.ED 07:45
DX: J06.9 Acute upper respiratory infection, unspecified (principal); Z79.899 Other long term (current) drug therapy; Z90.49 Acquired absence of other specified parts of digestive tract; Z20.822 Contact with and (suspected) exposure to COVID-19
CPT/HCPCS: 0241U; 99283

== ENCOUNTER 2021-12-30 20:05 | Emergency (ER) | payer MEDICARE, MEDICAID ==
[2021-12-30 20:18] VITALS: BP 121/54; PULSE 84
== END 2021-12-30 20:49 | disposition home or self-care (01) ==
LOC: JP.ED 20:05
DX: L23.7 Allergic contact dermatitis due to plants, except food (principal); D22.9 Melanocytic nevi, unspecified; Z72.0 Tobacco use
CPT/HCPCS: 99281; 99282

== ENCOUNTER 2022-01-09 10:13 | Emergency (ER) | payer MEDICARE, MEDICAID ==
[2022-01-09 10:48] VITALS: BP 110/70; PULSE 88
== END 2022-01-09 12:55 | disposition home or self-care (01) ==
LOC: JP.ED 10:13
DX: R10.9 Unspecified abdominal pain (principal); Z72.0 Tobacco use
CPT/HCPCS: 81001; 99281; 99284

== ENCOUNTER 2022-08-14 21:19 | Emergency (ER) | payer MEDICARE, MEDICAID ==
[2022-08-14 21:58] VITALS: BP 122/86; PULSE 109
[2022-08-14 22:35] LABS: CORONAVIRUS COVID-19 NAA NEGATIVE (NEGATIVE)
[2022-08-14] MEDS ORDERED: Ibuprofen 600 MG Tab PO ONE (23:26)
[2022-08-14] MEDS ORDERED: Oseltamivir 75 MG Cap PO ONE (23:27)
[2022-08-14] MEDS ORDERED: Benzonatate 100 MG Cap PO ONE (23:28)
== END 2022-08-14 23:39 | disposition home or self-care (01) ==
LOC: JP.ED 21:19
DX: J10.1 Influenza due to other identified influenza virus with other respiratory manifestations (principal); Z72.0 Tobacco use; Z20.822 Contact with and (suspected) exposure to COVID-19
CPT/HCPCS: 0241U; 99283; A9270

== ENCOUNTER 2023-07-05 17:42 | Emergency (ER) | payer MEDICARE, MEDICAID ==
[2023-07-05] MEDS ORDERED: Proparacaine 0.5% Ophth Soln 15 ML Bottle EYELF ONE (18:06)
[2023-07-05 18:09] VITALS: BP 117/64; PULSE 74
== END 2023-07-05 18:25 | disposition home or self-care (01) ==
LOC: JP.ED 17:42
DX: S05.02XA Injury of conjunctiva and corneal abrasion without foreign body, left eye, initial encounter (principal); F17.210 Nicotine dependence, cigarettes, uncomplicated; Z86.16 Personal history of COVID-19; Z90.49 Acquired absence of other specified parts of digestive tract; Z79.899 Other long term (current) drug therapy; W22.8XXA Striking against or struck by other objects, initial encounter
CPT/HCPCS: 99283